=== PATIENT | male | born 1995 | race Caucasian/White ===

== ENCOUNTER 2019-05-01 15:29 | Emergency (ER) | payer SELFPAY | END 2019-05-01 16:08 | disposition home or self-care (01) | LOC: MADERS 15:29 | DX: S61.250A Open bite of right index finger without damage to nail, initial encounter (principal); S61.231A Puncture wound without foreign body of left index finger without damage to nail, initial encounter; F90.9 Attention-deficit hyperactivity disorder, unspecified type; Z79.899 Other long term (current) drug therapy; W54.0XXA Bitten by dog, initial encounter | CPT/HCPCS: 99283 ==